=== PATIENT | female | born 1970 | race Caucasian/White ===

== ENCOUNTER 2016-11-05 09:58 | Outpatient (CLI) | payer BC ==
[2016-11-05 13:44] LABS: BASOPHILS % (AUTO) 0.7 %; EOSINOPHILS # (AUTO) 0.1 10^3/uL (0.0-0.7); HCT - HEMATOCRIT 38.8 % (37.0-47.0); LYMPHOCYTES # (AUTO) 1.6 10^3/uL (1.5-3.5); LYMPHOCYTES % (AUTO) 33.8 %; MEAN CORPUSCULAR HEMOGLOBIN 32.2 pg (27.0-31.0); MEAN CORPUSCULAR HGB CONC 33.6 g/dL (32.0-36.0); MEAN PLATELET VOLUME 7.4 fL (7.9-10.8); MONOCYTES # (AUTO) 0.3 10^3/uL (0.0-1.0); MONOCYTES % (AUTO) 6.7 %; NEUTROPHILS # (AUTO) 2.8 10^3/uL (1.5-6.6); NEUTROPHILS % (AUTO) 56.8 %; NUCLEATED RED BLOOD CELLS AUTO 0.1 /100WBC; RED BLOOD COUNT 4.04 10^6/uL (4.20-5.40); RED CELL DISTRIBUTION WIDTH 12.7 % (12.0-15.0); UNCORRECTED WHITE BLOOD COUNT 4.9 x10^3/uL; WHITE BLOOD COUNT 4.9 x10^3/uL (4.8-10.8)
[2016-11-05 14:00] LABS: H. PYLORI IGG ANTIBODY Negative (Negative); HPYLORI NEG QC Negative (Negative); HPYLORI POS QC POSITIVE (Positive)
[2016-11-05 14:15] LABS: ALBUMIN/GLOBULIN RATIO 1.5 (1.0-2.2); BILIRUBIN,TOTAL 0.3 mg/dL (0.2-1.0); CREATININE 0.7 mg/dL (0.4-1.0); POTASSIUM 3.8 mmol/L (3.5-5.0); TOTAL PROTEIN 6.9 g/dL (6.7-8.2)
== END 2016-11-05 09:59 | disposition home or self-care (01) ==
LOC: LAB.WCP 09:58
PROVIDERS: ATTEND Physician Assistant Medical
DX: K29.70 Gastritis, unspecified, without bleeding (principal)
CPT/HCPCS: 36415; 80053; 83690; 85025; 87339

== ENCOUNTER 2017-10-07 07:39 | Emergency (ER) | payer BC, OTHER ==
[2017-10-07] MEDS ORDERED: SODIUM CHLORIDE 0.9% 1,000 ML IV ONE (08:41)
[2017-10-07] MEDS ORDERED: ONDANSETRON 4 MG/2 ML VIAL IVP STA (08:41)
[2017-10-07] MEDS ORDERED: PHENobarb/HYOSCY/ATROPINE/SCOP 5 ML UDC PO STA (08:42)
[2017-10-07] MEDS ORDERED: MAG HYDROX/AL HYDROX/SIMETH 30 ML UDC PO STA (08:42)
[2017-10-07] MEDS ORDERED: LIDOCAINE VISCOUS 2% 15 ML UDC MM STA (08:42)
--- NOTE | 2017-10-07 08:45 | ED Physician Documentation ---
PD HPI ABD PAIN - Stated complaint Stated Complaint: ABD PX - Chief complaint Chief Complaint: Abd Pain - History obtained from History obtained from: Patient, Family (spouse) - History of Present Illness Timing - onset: How many hours ago (7) Timing - details: Still present Quality: Pain Location: Epigastric Associated symptoms: Nausea, Vomiting. No: Diarrhea Similar symptoms before: Diagnosis ("indigestion") - Treatment prior to arrival Treatment prior to arrival: omeprazole - Additional information Additional information: The patient is a 47-year-old female who presents with upper abdominal pain that started about 7 hours prior to arrival. She reports associated nausea with vomiting 2. She denies diarrhea, fever, or dysuria. Her last menstrual period was 1 week ago. She reports history of similar symptoms in the past, which has been diagnosed as "indigestion." She has been prescribed omeprazole, which she uses occasionally, when she gets the symptoms. Omeprazole did not work this morning. Past surgical history significant for . Review of Systems Constitutional: reports: Chills. denies: Fever Ears: denies: Tinnitus/ringing Nose: denies: Congestion Throat: denies: Sore throat Cardiac: denies: Chest pain / pressure Respiratory: denies: Dyspnea, Cough GI: reports: Abdominal Pain, Nausea, Vomiting. denies: Diarrhea : reports: LMP (1 week ago.). 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 - Present Medications Home Medications: Ambulatory Orders Medication Instructions Recorded Confirmed Omeprazole 1 tab PO DAILY PRN 10/07/17 10/07/17 Ondansetron HCl [Zofran] 4 mg PO Q6HR PRN #12 tablet 10/07/17 buPROPion [Wellbutrin Sr] 2 tab PO DAILY 10/07/17 10/07/17 oxyCODONE/ACET 5/325 [Percocet 5 1 - 2 tab PO Q4-6H PRN #30 tablet 10/07/17 mg/325 mg] - Allergies Allergies/Adverse Reactions: Allergies Allergy/AdvReac Type Severity Reaction Status Date / Time Sulfa (Sulfonamide AdvReac Rash Verified 10/07/17 08:04 Antibiotics) PD ED PE NORMAL - Vitals Vital signs reviewed: Yes (normal) - General General: Alert and oriented X 3, Well developed/nourished - HEENT HEENT: Atraumatic, Moist mucous membranes, Pharynx benign - Neck Neck: Supple, no meningeal sign, No adenopathy, No JVD - Cardiac Cardiac: RRR, No murmur - Respiratory Respiratory: No respiratory distress, Clear bilaterally - Abdomen Abdomen: Normal bowel sounds, Soft, No organomegaly, Other (Tender to palpation in the upper abdomen, more right upper quadrant than left. No rebound tenderness or guarding.) - Back Back: No CVA TTP - Derm Derm: No rash - Extremities Extremities: No edema, No calf tenderness / cord - Neuro Neuro: Alert and oriented X 3, No motor deficit, Normal speech Results - Vitals Vitals: Oxygen O2 Source Room air - Labs Labs: Laboratory Tests 10/07/17 10/07/17 10/07/17 08:35 08:35 09:40 WBC 7.2 RBC 4.17 L Hgb 13.6 Hct 39.3 MCV 94.3 MCH 32.5 H MCHC 34.5 RDW 12.6 Plt Count 335 MPV 7.1 L Neut # (Auto) 6.2 Lymph # (Auto) 0.[address] [place] # (Auto) 0.1 Eos # (Auto) 0.0 Baso # (Auto) 0.0 Absolute Nucleated RBC 0.00 Nucleated RBC % 0.0 Sodium 133 L Potassium 3.1 L Chloride 101 Carbon Dioxide 21 Anion Gap 11.0 BUN 16 Creatinine 0.7 Estimated GFR (MDRD) 89 Glucose 123 H Calcium 9.6 Total Bilirubin 0.8 AST 22 ALT 22 Alkaline Phosphatase 48 Total Protein 7.6 Albumin 4.3 Globulin 3.3 Albumin/Globulin Ratio 1.3 Lipase 29 Urine Color YELLOW Urine Clarity CLEAR Urine pH 8.5 H Ur Specific [place] 1.015 Urine Protein TRACE Urine Glucose (UA) NEGATIVE Urine Ketones >=80 H Urine Occult Blood NEGATIVE Urine Nitrite NEGATIVE Urine Bilirubin NEGATIVE Urine Urobilinogen 0.2 (NORMAL) Ur Leukocyte Esterase NEGATIVE Ur Microscopic Review NOT INDICATED Urine Culture Comments NOT INDICATED - Rads (name of study) RUQ U/S Radiology: Prelim report reviewed, EMP read contemporaneously, See rad report ( Cholelithiasis with distended sludge filled gallbladder and thickened gallbladder wall.) PD MEDICAL DECISION MAKING - ED course Complexity details: reviewed results, re-evaluated patient, considered differential, d/w patient, d/w family, 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 Ultrasound of the right upper quadrant reveals a distended, sludge-filled gallbladder with thickened gallbladder wall. Her presentation does not suggest cholecystitis or pancreatitis. White blood cell count is normal, as are her lipase and her liver enzymes. Treatment in the emergency department included administration of normal saline IV, fentanyl 50 g IV 2, and ondansetron 4 mg IV. Her symptoms improved with the above treatment. I discussed her condition with Dr. Pierre, who is on-call for general surgery. He advises urgent outpatient follow-up in surgery clinic in anticipation of elective colectomy. I discussed with the patient and her the diagnosis, importance of general surgery follow-up, as well as potentially worrisome signs or symptoms that should prompt reevaluation in the emergency department. She is being discharged with prescriptions for Percocet and for ondansetron. - Sepsis Event Vital Signs: Oxygen O2 Source Room air Departure - Departure Disposition: Home, Self Care Clinical Impression: Cholelithiasis Qualifiers: Cholelithiasis location: gallbladder Cholecystitis presence: without cholecystitis Biliary obstruction: without biliary obstruction Qualified Code(s) : K80.20 - Calculus of gallbladder without cholecystitis without obstruction Condition: Stable Instructions: ED Gallstone W Biliary Colic Follow-Up: Anna Chavez PA-C [Primary Care Provider] - Edil Pierre MD [Provider Admit Priv/Credential] - Prescriptions: Ondansetron HCl [Zofran] 4 mg PO Q6HR PRN #12 tablet PRN Reason: Nausea / Vomiting oxyCODONE/ACET 5/325 [Percocet 5 mg/325 mg] 1 - 2 tab PO Q4-6H PRN #30 tablet PRN Reason: Pain Comments: Avoid greasy or fatty foods. You can use Percocet as prescribed if needed for pain. You can use Zofran as prescribed if needed for nausea. Follow up with your general surgery as soon as possible. Call to schedule appointment. You may need referral from her primary provider. Return to the emergency department if you develop increasing abdominal pain, persistent vomiting, fever, or otherwise worsening symptoms. Discharge Date/Time: 10/07/17 12:40
[2017-10-07 08:52] LABS: BASOPHILS % (AUTO) 0.4 %; EOSINOPHILS % (AUTO) 0.1 %; HGB - HEMOGLOBIN 13.6 g/dL (12.0-16.0); LYMPHOCYTES # (AUTO) 0.8 10^3/uL (1.5-3.5); LYMPHOCYTES % (AUTO) 11.4 %; MEAN CORPUSCULAR HEMOGLOBIN 32.5 pg (27.0-31.0); MEAN CORPUSCULAR HGB CONC 34.5 g/dL (32.0-36.0); MEAN CORPUSCULAR VOLUME 94.3 fL (81.0-99.0); MEAN PLATELET VOLUME 7.1 fL (7.9-10.8); MONOCYTES # (AUTO) 0.1 10^3/uL (0.0-1.0); MONOCYTES % (AUTO) 1.9 %; NEUTROPHILS # (AUTO) 6.2 10^3/uL (1.5-6.6); NEUTROPHILS % (AUTO) 86.2 %; PLT - PLATELET COUNT 335 10^3/uL (130-450); RED BLOOD COUNT 4.17 10^6/uL (4.20-5.40); RED CELL DISTRIBUTION WIDTH 12.6 % (12.0-15.0); WHITE BLOOD COUNT 7.2 x10^3/uL (4.8-10.8)
[2017-10-07 09:03] LABS: ALBUMIN 4.3 g/dL (3.2-5.5); ALBUMIN/GLOBULIN RATIO 1.3 (1.0-2.2); BILIRUBIN,TOTAL 0.8 mg/dL (0.2-1.0); CALCIUM 9.6 mg/dL (8.5-10.3); CREATININE 0.7 mg/dL (0.4-1.0); TOTAL PROTEIN 7.6 g/dL (6.7-8.2)
[2017-10-07] MEDS ORDERED: fentaNYL 100 MCG/2 ML VIAL IVP STA ×2 (09:19→11:30)
[2017-10-07 09:59] LABS: BILIRUBIN,URINE NEGATIVE (NEGATIVE); GLUCOSE, URINE (UA) NEGATIVE (NEGATIVE); KETONES,URINE (UA) >=80 mg/dL (NEGATIVE); LEUKOCYTE ESTERASE, URINE NEGATIVE (NEGATIVE); NITRITE,URINE NEGATIVE (NEGATIVE); OCCULT BLOOD,URINE NEGATIVE (NEGATIVE); PH,URINE 8.5 PH (5.0-7.5); PROTEIN,URINE TRACE mg/dL (NEGATIVE); UROBILINOGEN,URINE 0.2 (NORMAL) E.U./dL (NORMAL)
[2017-10-07 10:00] LABS: CLARITY,URINE CLEAR (CLEAR)
--- NOTE | 2017-10-07 11:29 | Ultrasound Report ---
Procedure Date: 10/07/2017 Accession Number: [id number] / [id number] Procedure: US - Abdomen Limited CPT Code: FULL RESULT: EXAM: Abdomen Limited DATE: 10/07/2017 11:12 AM CLINICAL HISTORY: RUQ abdominal pain COMPARISON: None. TECHNIQUE: Real-time scanning was performed with static images obtained. FINDINGS: Liver: Normal in size and echotexture, 15.9 cm. Main portal vein flow: Hepatopetal. Gallbladder: 1.7 cm immobile stone in the gallbladder neck. Gallbladder 10.5 cm in length, distended, with sludge. Wall thickness 4 mm. Biliary System: CBD measures 4.8 mm. No intrahepatic or extrahepatic ductal dilatation. Free fluid: None. Right kidney: 11 cm, unremarkable. IMPRESSION: Cholelithiasis with distended sludge filled gallbladder and thickened gallbladder wall. RADIA
[2017-10-07 11:54] VITALS: BP 108/58
== END 2017-10-07 12:40 | disposition home or self-care (01) ==
LOC: ED 07:39
DX: K80.20 Calculus of gallbladder without cholecystitis without obstruction (principal)
CPT/HCPCS: 36415; 76705; 80053; 81003; 83690; 85025; 96361; 96374; 96375; 96376; 99284; A9270; 81001; 87086

== ENCOUNTER 2017-10-22 09:22 | Day surgery (SDC) | payer OTHER ==
[~2017-10-22 09:22] MED LIST: BUPIVACAINE 0.5%-EPI 1:200000 PF 30 ML VIAL ONE; IOTHALAMATE MEGLUMINE 50 ML VIAL ONE
[2017-10-22 09:49] LABS: HCG UR QUAL NEGATIVE
[2017-10-22] MEDS ORDERED: LACTATED RINGERS 1,000 ML IV ONE ×2 (10:00→12:40)
[2017-10-22] MEDS ORDERED: ceFAZolin 2 GM/50 ML 2 GM/50 ML BAG IV ONE (10:15)
[2017-10-22] MEDS ORDERED: IOTHALAMATE MEGLUMINE 50 ML VIAL IVP ONE (12:04)
[2017-10-22] MEDS ORDERED: BUPIVACAINE 0.5%-EPI 1:200000 PF 30 ML VIAL SUBQ ONE (12:04)
[2017-10-22] MEDS ORDERED: MIDAZOLAM 2 MG/2 ML VIAL IVP ONE (12:20)
[2017-10-22] MEDS ORDERED: ROCURONIUM 50 MG/5 ML VIAL IVP ONE (12:20)
[2017-10-22] MEDS ORDERED: SODIUM CHLORIDE 0.9% 10 ML VIAL IV ONE (12:20)
[2017-10-22] MEDS ORDERED: KETOROLAC 30 MG/ML VIAL IVP ONE (12:20)
[2017-10-22] MEDS ORDERED: GLYCOPYRROLATE 1 MG/5 ML VIAL IVP ONE (12:20)
[2017-10-22] MEDS ORDERED: PHENYLEPHRINE 50 MG/5 ML VIAL IV ONE (12:20)
[2017-10-22] MEDS ORDERED: fentaNYL 100 MCG/2 ML VIAL IVP ONE (12:20)
[2017-10-22] MEDS ORDERED: PROPOFOL 200 MG/20 ML VIAL IVP ONE (12:20)
[2017-10-22] MEDS ORDERED: ACETAMINOPHEN 1,000 MG/100 ML 100 ML IV ONE (12:20)
[2017-10-22] MEDS ORDERED: LIDOCAINE-MPF 2% 5 ML VIAL IM ONE (12:20)
[2017-10-22] MEDS ORDERED: NEOSTIGMINE 1 MG/1 ML 10 ML MDV IVP ONE (12:20)
[2017-10-22] MEDS ORDERED: DEXAMETHASONE 4 MG/ML VIAL IVP ONE (12:20)
--- NOTE | 2017-10-22 12:39 | XRAY Report ---
Procedure Date: 10/22/2017 Accession Number: [id number] / [id number] Procedure: [place] - OR Cholangiogram CPT Code: FULL RESULT: EXAM: OR Cholangiogram DATE: 10/22/2017 12:36 PM CLINICAL HISTORY: CHOLANGIOGRAM COMPARISON: None. TECHNIQUE: Dr. Pierre performed the procedure. Please see the operative notes for details. Fluoroscopic exposure time: 28 seconds . Number of fluoroscopic images: 2. IMPRESSION: A catheter has been placed into the cystic duct remnant following cholecystectomy. Cholangiography shows opacification of the bile ducts. Visualized ducts show no filling defects. Spill of contrast into the duodenum documented. RADIA
[2017-10-22 13:57] VITALS: BP 100/44
--- NOTE | 2017-10-24 03:57 | OPERATIVE REPORT ---
DATE OF SERVICE: 10/22/2017 Physician: Edil Pierre MD PREOPERATIVE DIAGNOSIS: Chronic cholecystitis with cholelithiasis. POSTOPERATIVE DIAGNOSIS: Chronic cholecystitis with cholelithiasis. PROCEDURE PERFORMED: Laparoscopic cholecystectomy with intraoperative cholangiogram. OPERATING SURGEON: Edil Pierre MD ANESTHESIA: General. INDICATION FOR SURGERY: The patient is a 47-year-old female who has been having intermittent right upper quadrant abdominal pain recently. Pain had become severe, and she went to the emergency room to have it evaluated. She was given IV pain medication, with her pain improving. She had an abdominal ultrasound, which showed a large gallstone being present in the gallbladder. FINDINGS AT SURGERY: The patient had a large, 2 cm gallstone lodged in the neck of the gallbladder. She had a normal intraoperative cholangiogram without any filling defects being present. PROCEDURE: After informed consent was obtained, the patient was taken to the operating room and placed in supine position. General endotracheal anesthesia was administered. The patient's abdomen was then prepped and draped in the usual sterile fashion. An infraumbilical incision was made in the skin using a scalpel. It was carried down to the fascia. A 5 mm Optiview trocar was then inserted through the incision, through the fascia and into the abdominal cavity under direct vision. Abdomen was then insufflated. Three 5 mm ports were then placed in the right upper quadrant, with the 5 mm port at the umbilical area switched to a 12 mm port under direct vision. The gallbladder fundus was then grasped and lifted anteriorly and superiorly, exposing the proximal portion of the gallbladder and the cystic duct. There was a large gallstone lodged in the neck of the gallbladder. The peritoneum and the triangle of [place]ot were then incised using cautery. Cystic duct was dissected free as well as the cystic artery. Clips were then placed proximally and distally along the cystic artery, with it then being divided. A critical view had been obtained. A small incision was then made in the cystic duct, and the cholangiogram catheter was then inserted. Cholangiogram was then performed which showed normal biliary anatomy without any filling defects being present and flow of contrast into the intestine. The catheter was then removed. Clips were then placed proximally and distally along the cystic duct, with it then being divided. Gallbladder was then dissected off the gallbladder bed using electrocautery, placed in an Endobag, and removed through the umbilical port. The right upper quadrant was thoroughly irrigated until return fluid was clear. The ports were then removed, and no bleeding was noted at the port sites, with the abdomen then being desufflated. The umbilical fascial defect was then closed using #0 Vicryl suture. Skin incisions were closed using 4-0 Monocryl subcuticular stitch. Dermabond was then applied to the incision sites. The patient was then awakened, extubated, and taken from the operating room in stable condition. ESTIMATED BLOOD LOSS: 5 mL COMPLICATIONS: None. CONDITION OF THE PATIENT AT THE END OF THE PROCEDURE: Stable. SPECIMENS: Gallbladder and gallstones. DRAINS AND PACKS: None. CLASSIFICATION OF WOUND: Clean, contaminated. TD: 10/23/2017 22:39
== END 2017-10-22 09:23 | disposition home or self-care (01) ==
LOC: SDS 09:22
PROVIDERS: ATTEND Surgery
PROC: BF130ZZ Fluoroscopy of Gallbladder and Bile Ducts using High Osmolar Contrast (ICD-10-PCS; 2017-10-22)
PROC: 0FT44ZZ Resection of Gallbladder, Percutaneous Endoscopic Approach (ICD-10-PCS; principal; 2017-10-22 11:59)
DX: K80.10 Calculus of gallbladder with chronic cholecystitis without obstruction (principal)
CPT/HCPCS: 47563; 74300; 81025; C1758; J0131; J0690; J7120; Q9961

== ENCOUNTER 2018-07-11 08:00 | Outpatient (CLI) | payer BC, OTHER ==
[2018-07-11 18:50] LABS: BILIRUBIN,URINE NEGATIVE (NEGATIVE); GLUCOSE, URINE (UA) NEGATIVE (NEGATIVE); KETONES,URINE (UA) NEGATIVE (NEGATIVE); LEUKOCYTE ESTERASE, URINE NEGATIVE (NEGATIVE); NITRITE,URINE NEGATIVE (NEGATIVE); OCCULT BLOOD,URINE NEGATIVE (NEGATIVE); PROTEIN,URINE NEGATIVE (NEGATIVE); UROBILINOGEN,URINE 0.2 (NORMAL) E.U./dL (NORMAL)
[2018-07-11 18:52] LABS: CLARITY,URINE CLEAR (CLEAR)
== END 2018-07-11 23:59 | disposition home or self-care (01) ==
LOC: LAB.R 08:00
PROVIDERS: ATTEND Nurse Practitioner
DX: R30.0 Dysuria (principal)
CPT/HCPCS: 81001; 81003; 87086

== ENCOUNTER → 2019-01-05 | Outpatient (CLI) | payer BC ==
[2019-01-05 18:28] LABS: BASOPHILS % (AUTO) 0.6 %; EOSINOPHILS # (AUTO) 0.1 10^3/uL (0.0-0.7); EOSINOPHILS % (AUTO) 0.8 %; LYMPHOCYTES % (AUTO) 46.1 %; MEAN CORPUSCULAR HEMOGLOBIN 31.9 pg (27.0-31.0); MEAN CORPUSCULAR HGB CONC 32.6 g/dL (32.0-36.0); MEAN PLATELET VOLUME 9.3 fL (7.9-10.8); MONOCYTES # (AUTO) 0.4 10^3/uL (0.0-1.0); MONOCYTES % (AUTO) 6.2 %; NEUTROPHILS % (AUTO) 46.1 %; PLT - PLATELET COUNT 336 10^3/uL (130-450); RED BLOOD COUNT 4.07 10^6/uL (4.20-5.40); RED CELL DISTRIBUTION WIDTH 12.3 % (12.0-15.0); WHITE BLOOD COUNT 6.6 x10^3/uL (4.8-10.8)
[2019-01-05 18:56] LABS: T4 (THYROXINE) 8.82 ug/dL (6.09-12.23)
[2019-01-05 18:57] LABS: ALBUMIN 4.4 g/dL (3.2-5.5); ALBUMIN/GLOBULIN RATIO 1.5 (1.0-2.2); BILIRUBIN,TOTAL 0.4 mg/dL (0.2-1.0); CALCIUM 9.5 mg/dL (8.5-10.3); CREATININE 0.6 mg/dL (0.4-1.0); TOTAL PROTEIN 7.4 g/dL (6.7-8.2)
[2019-01-05 19:00] LABS: THYROID STIMULATING HORMONE 2.74 uIU/mL (0.34-5.60)
[2019-01-05 19:02] LABS: FREE T4 (FREE THYROXINE) 0.87 ng/dL (0.58-1.64)
== END ==
LOC: LAB.WCP 08:00
PROVIDERS: ATTEND Family Medicine
DX: Z00.00 Encounter for general adult medical examination without abnormal findings (principal); R25.2 Cramp and spasm
CPT/HCPCS: 36415; 80053; 84436; 84439; 84443; 84481; 85025

== ENCOUNTER 2021-04-01 16:46 | Outpatient (CLI) | payer BC | END 2021-04-01 16:47 | disposition home or self-care (01) | LOC: LAB.S 16:46 | PROVIDERS: ATTEND Physician Assistant Medical | DX: Z00.00 Encounter for general adult medical examination without abnormal findings (principal) | CPT/HCPCS: 36415; 83001 ==

== ENCOUNTER 2021-05-28 14:59 | Outpatient (CLI) | payer OTHER ==
--- NOTE | 2021-05-29 07:02 | Mammography Report ---
BILATERAL DIGITAL SCREENING MAMMOGRAM 3D/2D WITH EXAGGERATED CC: 05/28/2021 CLINICAL: Routine screening. Comparison is made to exams dated: 06/13/2014 mammogram, 10/29/2011 mammogram, 06/19/2010 mammogram, and 06/11/2010 mammogram - [facility]. The tissue of both breasts is heterogeneously d ense. This may lower the sensitivity of mammography. There is a new 3.5 cm oval mass with a circumscribed and microlobulated margin in the left breast at 12 o'clock middle depth. There also is an asymmetry in the left breast middle depth lateral region seen on the craniocaudal vi ew only. This is more prominent. No other significant masses, calcifications, or other findings are seen in either breast. IMPRESSION: INCOMPLETE: NEEDS ADDITIONAL IMAGING EVALUATION The new 3.5 cm oval mass in the left breast at 12 o'clock middle depth is indeterminate. -Additional views with possible ultrasound are recommended. The asymmetry in the left breast middle depth lateral region seen on the craniocaudal view only is in determinate. -Additional views with possible ultrasound are recommended. This exam was interpreted at Station ID: [id number]. NOTE: For mammograms, a report in lay terms will be sent to the patient. Approximately 15% of breast malignancies will not be visualized mammographically. In the management of a palpable breast mass, a negative mammogram must not discourage biopsy of a clinically suspicious lesion. Electronically Signed By: Ifeanyi Watson M.D. slc/:05/28/2021 17:32:59 ACR BI-RADS Category 0: Incomplete 3340F PARENCHYMAL PATTERN: (D) - The breast(s) demonstrate(s) heterogeneously dense fibroglandular parfloriday xenia. BI-RADS CATEGORY: (0) - 0 Mammo and [place] [id number] Immediate follow-up LATERALITY: (B)
== END 2021-05-28 15:00 | disposition home or self-care (01) ==
LOC: DI.S 14:59
DX: Z12.31 Encounter for screening mammogram for malignant neoplasm of breast (principal); R92.8 Other abnormal and inconclusive findings on diagnostic imaging of breast

== ENCOUNTER 2021-05-30 08:02 | Outpatient (CLI) | payer OTHER ==
[2021-05-30 16:06] LABS: BASOPHILS % (AUTO) 0.5 %; EOSINOPHILS # (AUTO) 0.1 10^3/uL (0.0-0.7); EOSINOPHILS % (AUTO) 2.1 %; HCT - HEMATOCRIT 39.8 % (37.0-47.0); HGB - HEMOGLOBIN 12.7 g/dL (12.0-16.0); LYMPHOCYTES # (AUTO) 2.3 10^3/uL (1.5-3.5); LYMPHOCYTES % (AUTO) 41.2 %; MEAN CORPUSCULAR HEMOGLOBIN 31.1 pg (27.0-31.0); MEAN CORPUSCULAR HGB CONC 31.9 g/dL (32.0-36.0); MEAN CORPUSCULAR VOLUME 97.3 fL (81.0-99.0); MEAN PLATELET VOLUME 9.2 fL (7.9-10.8); MONOCYTES # (AUTO) 0.4 10^3/uL (0.0-1.0); MONOCYTES % (AUTO) 6.9 %; NEUTROPHILS # (AUTO) 2.8 10^3/uL (1.5-6.6); NEUTROPHILS % (AUTO) 49.1 %; PLT - PLATELET COUNT 327 10^3/uL (130-450); RED BLOOD COUNT 4.09 10^6/uL (4.20-5.40); WHITE BLOOD COUNT 5.7 x10^3/uL (4.8-10.8)
[2021-05-30 16:41] LABS: ALBUMIN 4.3 g/dL (3.2-5.5); ALBUMIN/GLOBULIN RATIO 1.5 (1.0-2.2); ALKALINE PHOSPHATASE 63 IU/L (42-121); ALT ALANINE AMINOTRANSFERASE 17 IU/L (10-60); AST ASPARTATE AMINOTRANSFERASE 18 IU/L (10-42); BILIRUBIN,TOTAL 0.6 mg/dL (0.2-1.0); BUN - BLOOD UREA NITROGEN 13 mg/dL (6-20); CALCIUM 9.3 mg/dL (8.5-10.3); CARBON DIOXIDE - CO2 28 mmol/L (21-32); CHLORIDE 102 mmol/L (101-111); CHOL/HDL RATIO 3.4 (<4.4); CHOLESTEROL 235 mg/dL; CREATININE 0.6 mg/dL (0.4-1.0); GFR - MDRD 105 (>89); GLUCOSE 108 mg/dL (70-100); HDL CHOLESTEROL 69 mg/dL; LDL CHOLESTEROL,CALCULATED 154 mg/dL; LDL/HDL RATIO 2.2 (<4.4); POTASSIUM 3.9 mmol/L (3.5-5.0); SODIUM 138 mmol/L (135-145); TOTAL PROTEIN 7.1 g/dL (6.7-8.2); TRIGLYCERIDES 59 mg/dL; VLDL CHOLESTEROL 12 mg/dL
[2021-05-30 17:41] LABS: THYROID STIMULATING HORMONE 2.16 uIU/mL (0.34-5.60)
[2021-05-30 17:47] LABS: FERRITIN 121.4 ng/mL (11.0-306.8)
== END 2021-05-30 08:03 | disposition home or self-care (01) ==
LOC: LAB.S 08:02
PROVIDERS: ATTEND Physician Assistant Medical
DX: Z00.00 Encounter for general adult medical examination without abnormal findings (principal); L65.9 Nonscarring hair loss, unspecified
CPT/HCPCS: 36415; 80053; 80061; 82728; 83721; 84443; 85025

== ENCOUNTER 2023-01-21 09:02 | Outpatient (CLI) | payer OTHER ==
[2023-01-21 14:27] LABS: BASOPHILS % (AUTO) 0.6 %; EOSINOPHILS # (AUTO) 0.1 10^3/uL (0.0-0.7); EOSINOPHILS % (AUTO) 1.7 %; HCT - HEMATOCRIT 36.6 % (37.0-47.0); HGB - HEMOGLOBIN 11.8 g/dL (12.0-16.0); LYMPHOCYTES # (AUTO) 2.1 10^3/uL (1.5-3.5); LYMPHOCYTES % (AUTO) 40.3 %; MEAN CORPUSCULAR HEMOGLOBIN 31.6 pg (27.0-31.0); MEAN CORPUSCULAR HGB CONC 32.2 g/dL (32.0-36.0); MEAN CORPUSCULAR VOLUME 98.1 fL (81.0-99.0); MEAN PLATELET VOLUME 9.2 fL (7.9-10.8); MONOCYTES # (AUTO) 0.3 10^3/uL (0.0-1.0); MONOCYTES % (AUTO) 5.2 %; NEUTROPHILS # (AUTO) 2.7 10^3/uL (1.5-6.6); NEUTROPHILS % (AUTO) 51.4 %; PLT - PLATELET COUNT 289 10^3/uL (130-450); RED BLOOD COUNT 3.73 10^6/uL (4.20-5.40); WHITE BLOOD COUNT 5.2 x10^3/uL (4.8-10.8)
[2023-01-21 14:54] LABS: ALBUMIN 4.6 g/dL (3.2-5.5); ALBUMIN/GLOBULIN RATIO 1.8 (1.0-2.2); ALKALINE PHOSPHATASE 70 IU/L (42-121); ALT ALANINE AMINOTRANSFERASE 11 IU/L (10-60); AST ASPARTATE AMINOTRANSFERASE 15 IU/L (10-42); BILIRUBIN,TOTAL 0.4 mg/dL (0.2-1.0); BUN - BLOOD UREA NITROGEN 16 mg/dL (6-20); CALCIUM 9.5 mg/dL (8.5-10.3); CARBON DIOXIDE - CO2 31 mmol/L (21-32); CHLORIDE 105 mmol/L (101-111); CHOL/HDL RATIO 3.6 (<4.4); CHOLESTEROL 193 mg/dL; CREATININE 0.4 mg/dL (0.6-1.3); GFR - MDRD 166 (>89); GLUCOSE 93 mg/dL (74-104); HDL CHOLESTEROL 54 mg/dL; LDL CHOLESTEROL,CALCULATED 124 mg/dL; LDL/HDL RATIO 2.3 (<4.4); POTASSIUM 4.1 mmol/L (3.5-4.5); SODIUM 142 mmol/L (135-145); TOTAL PROTEIN 7.1 g/dL (6.4-8.9); TRIGLYCERIDES 73 mg/dL (48-352); VLDL CHOLESTEROL 15 mg/dL
== END 2023-01-21 09:03 | disposition home or self-care (01) ==
LOC: LAB.S 09:02
PROVIDERS: ATTEND Physician Assistant Medical
DX: Z00.00 Encounter for general adult medical examination without abnormal findings (principal)
CPT/HCPCS: 36415; 80053; 80061; 83721; 84443; 85025